=== PATIENT | female | born 1980 | race Caucasian/White ===

== ENCOUNTER 2019-04-14 13:54 | Outpatient (CLI) | payer OTHER | END 2019-04-14 14:13 | disposition home or self-care (01) | LOC: MAMO-SONO 13:54 | DX: Z12.31 Encounter for screening mammogram for malignant neoplasm of breast (principal); E84.8 Cystic fibrosis with other manifestations ==

== ENCOUNTER 2020-07-05 08:42 | Outpatient (CLI) | payer OTHER | END 2020-07-05 08:53 | disposition home or self-care (01) | LOC: RX STUDY 08:42 | PROVIDERS: ATTEND Obstetrics & Gynecology Reproductive Endocrinology | DX: N93.0 Postcoital and contact bleeding (principal) ==